=== PATIENT | female | born 1960 | race Caucasian/White ===

== ENCOUNTER → 2018-01-11 | Outpatient (CLI) | payer BC | END | disposition home or self-care (01) | LOC: CFH 10:33 | PROVIDERS: ATTEND Internal Medicine | DX: Z12.31 Encounter for screening mammogram for malignant neoplasm of breast (principal); Z85.3 Personal history of malignant neoplasm of breast | CPT/HCPCS: 77067 ==

== ENCOUNTER → 2019-04-06 | Outpatient (CLI) | payer BC, OTHER | END | disposition home or self-care (01) | LOC: CFH 10:00 | PROVIDERS: ATTEND Internal Medicine | DX: Z12.31 Encounter for screening mammogram for malignant neoplasm of breast (principal); N63.10 Unspecified lump in the right breast, unspecified quadrant; N64.89 Other specified disorders of breast | CPT/HCPCS: 77063; 77067 ==

== ENCOUNTER → 2019-04-25 | Outpatient (CLI) | payer OTHER | END | disposition home or self-care (01) | LOC: CFH 12:37 | PROVIDERS: ATTEND Internal Medicine | DX: N63.41 Unspecified lump in right breast, subareolar (principal); R92.2 Inconclusive mammogram; N64.89 Other specified disorders of breast | CPT/HCPCS: 76642; 77065 ==

== ENCOUNTER 2019-05-05 09:57 | Outpatient (CLI) | payer OTHER ==
[2019-05-05] MEDS ORDERED: LIDOCAINE 1%-EPI 1:100K, 20ML ONE (10:15)
[2019-05-05] MEDS ORDERED: SODIUM BICARBONATE 4.2%, 5ML ONE (10:15)
[2019-05-05] MEDS ORDERED: LIDOCAINE 1%, 20ML ONE (10:15)
== END 2019-05-05 23:59 | disposition home or self-care (01) ==
LOC: CFH 09:57
PROVIDERS: ATTEND Internal Medicine
DX: N63.10 Unspecified lump in the right breast, unspecified quadrant (principal); C50.911 Malignant neoplasm of unspecified site of right female breast; Z17.0 Estrogen receptor positive status [ER+]; Z98.890 Other specified postprocedural states
CPT/HCPCS: 19083; 77065; 88305; 88360; J3490; 19285

== ENCOUNTER 2019-08-24 08:41 | Outpatient (CLI) | payer OTHER | END 2019-08-24 23:59 | disposition home or self-care (01) | LOC: CFH 08:41 | PROVIDERS: ATTEND Internal Medicine | DX: Z02.9 Encounter for administrative examinations, unspecified (principal) ==

== ENCOUNTER 2019-08-26 08:04 | Outpatient (CLI) | payer OTHER | END 2019-08-26 23:59 | disposition home or self-care (01) | LOC: CFH 08:04 | PROVIDERS: ATTEND Internal Medicine | DX: Z13.820 Encounter for screening for osteoporosis (principal); C50.411 Malignant neoplasm of upper-outer quadrant of right female breast; N95.9 Unspecified menopausal and perimenopausal disorder | CPT/HCPCS: 77080 ==

== ENCOUNTER → 2020-06-04 | Outpatient (CLI) | payer OTHER | END | disposition home or self-care (01) | LOC: CFH 14:18 → EDSTATUS 14:45 | PROVIDERS: ATTEND Surgery | DX: Z12.31 Encounter for screening mammogram for malignant neoplasm of breast (principal) | CPT/HCPCS: 77063; 77067 ==